=== PATIENT | female | born 1995 | race Asian ===

== ENCOUNTER → 2018-09-29 06:29 | Day surgery (SDC) | payer OTHER ==
[~2018-09-29 06:29] MED LIST: Acetaminophen TAB* 325 MG ONE; Acetaminophen TAB* 325 MG PO PRN; Buffered Lidocaine 1% SYRIN* 1 ML/SYRINGE INTRADERM ONE; Bupivacaine 0.25% SDV PF* 10 ML VIAL INJ ONE; Dexamethasone IV* 4 MG/ML 1 ML (4 MG) IV SLOW PU ONE; Dexamethasone IV* 4 MG/ML 1 ML (4 MG) ONE; DiMENhydriNATE IV* 50 MG/ML VIAL IV PUSH PRN; DiMENhydriNATE IV* 50 MG/ML VIAL ONE; Lactated Ringers 1000 ML Bag* 1,000 ML IV SCH; Lidocaine 1% INJ* 10 MG/ML 30 ML SDV ONE; Lidocaine 2% PF * 5 ML VIAL ONE; Midazolam* 1 MG/ML 2 ML VIAL (2 MG) ONE; Naloxone* 0.4 MG/ML 1 ML VIAL IV PRN; Ondansetron INJ* 2 MG/ML VIAL ONE; Propofol* 10 MG/ML 20 ML BTL ONE; Succinylcholine* 20 MG/ML 10 ML VIAL ONE; fentaNYL* 50 MCG/ML 2 ML VIAL (100 MCG VIAL) IV PRN; fentaNYL* 50 MCG/ML 2 ML VIAL (100 MCG VIAL) ONE; oxyCODONE/Acetamin 5/325 MG* TAB PO PRN
--- NOTE | 2018-09-29 11:54 | OP ---
Operative Report - Blank - Operative Report Date of Operation: 09/29/18 Note: Brief Operative Note Preop Dx: Papillary thyroid cancer Postop Dx: same Procedure: Total thyroidectomy Anesthesia: GET Surgeon: Alexis Neck Skewer: CHAZ Simmons Fluids: 1500 ml crystalloid EBL: < 10 ml Specimen: thyroid gland Drains: none Findings: as above Complications: none
--- NOTE | 2018-09-29 13:26 | OP ---
CC: Dr. Valentin Lu * DATE OF OPERATION: 09/29/18 - SDS DATE OF : [birth year] SERVICE: General Surgery. SURGEON: Estefanía Espinoza MD TALENT SCOUT: CHAZ Bella ANESTHESIOLOGIST: Dr. Bernard Mir. ANESTHESIA: General endotracheal anesthesia. PRE-OP DIAGNOSIS: Left thyroid papillary thyroid carcinoma. POST-OP DIAGNOSIS: Left thyroid papillary thyroid carcinoma. OPERATIVE PROCEDURE: Total thyroidectomy. ESTIMATED BLOOD LOSS: Minimal, less than 10 cc. IV FLUIDS: Approximately 1500 cc. SPECIMENS: Right and left thyroid lobes. INDICATIONS FOR SURGERY: Ms. Farah is a very pleasant and healthy 23-year-old female with a history of a left thyroid nodule that was biopsied as papillary thyroid carcinoma. She therefore gave informed consent for a total thyroidectomy. She understood the risks, benefits, and alternatives of the procedure and she wished to proceed. DESCRIPTION OF PROCEDURE: The patient was brought back to the operating room and placed on the operating table in supine position. Sequential compression devices were placed on the bilateral lower extremities for DVT prophylaxis. No antibiotics were administered. General endotracheal anesthesia was induced. The patient's neck was placed in an extended position. The electrodes to the nerve monitor were attached, and then prior to administering local anesthesia, a time-out was performed verifying the patient's name, MR number, and the procedure to be performed. Next, 0.25% marcaine mixed with 1% lidocaine was infiltrated into the anterior neck for local anesthesia. Then the neck was prepped and draped in normal sterile fashion. Prior to beginning the surgery, a second time-out was performed verifying the patient's name, MR number, and the procedure to be performed. An approximately 3.5 cm incision was made in the midline neck approximately 2 fingerbreadths above the sternal notch in a natural crease line. The skin was divided down to the subcutaneous tissue. The platysma was divided and then the superior and inferior subplatysmal flaps were developed. The median raphe between the strap muscles was identified and retracted laterally until the isthmus of the thyroid was identified. The isthmus was noted to extend superiorly as a pyramidal lobe; therefore, this pyramidal lobe was divided off the trachea and then the space below the thyroid and above the trachea was developed. Next, attention was turned towards the inferior aspect of the isthmus. The right and left sienna veins were both divided , and after this was done, the isthmus was able to be divided off the trachea flush with the right thyroid lobe. Given that the papillary thyroid carcinoma was located on the left side, attention was first turned towards the left thyroid lobe. The medial attachments of the left thyroid lobe to the trachea were divided using the LigaSure. The space of Reeve's located between the cricothyroid muscle and the superior pole vessels was developed and divided. After this, the left thyroid lobe was rotated medially and the strap muscles were retracted laterally off the thyroid lobe and the middle thyroid vein was divided. The space continued to be developed, and after this was done, the superior pole vessels were then divided using combination of 2-0 silk ties and LigaSure. Next, the thyroid lobe was again rotated medially up and out of the neck, and then the recurrent laryngeal nerve was identified. Its entire course was traced out until its insertion point into the cricothyroid muscle. Of note , it was identified visually; however, at the beginning of the case, the nerve monitor failed to stimulate, although the nerve was completely intact. By the end of the case, the nerve did begin to have a signal indicating that there may have been a slight traction injury on the nerve. The inferior and superior parathyroid glands were identified and preserved on their vascular pedicles. The left thyroid lobe was then taken off the trachea starting at Lin's ligament using the LigaSure. Once it was removed, it was carefully examined for any parathyroid glands and none were identified; therefore, a stitch was used to gavin the upper pole and was carried off as specimen. Next, attention was turned towards the right thyroid lobe. In a similar fashion, the medial attachments to the trachea were divided using the LigaSure. The space of Reeve' s was then developed. The strap muscles were off the right thyroid lobe laterally and then the middle thyroid vein was divided. The superior pole vessels were then divided using combination of LigaSure and 2-0 silk ties, and the right thyroid lobe was then rotated medially out of the neck. The inferior and superior parathyroid glands were identified and preserved on their pedicles. The recurrent laryngeal nerve on the right side was identified. Its entire course was traced out up until its insertion point at the cricothyroid muscle. It both was identified visually and with the nerve stimulator. After this was done, with great care, the right thyroid lobe was divided off the trachea using LigaSure starting at Lin's ligament and moving inferiorly over the trachea. Once it was taken off, it was carefully examined, no parathyroids were identified, then a 2-0 silk suture was used to gavin its upper pole. It was carried off the table as specimen. Next, hemostasis was obtained in both the right and left lateral necks, and once this was done, Tisseel was placed into the neck and then the strap muscles were reapproximated using interrupted 4 -0 Vicryl sutures. The platysma was reapproximated using interrupted 4-0 Vicryl sutures and the skin was reapproximated using a running 5-0 Prolene suture. At the end of the case, all counts were correct and I was present during the entirety of the case. [id number] #: [id number] MTDD
[2018-09-29 17:30] VITALS: BP 144/83
== END | disposition home or self-care (01) ==
LOC: OR 06:29
PROVIDERS: ATTEND Surgery
DX: C73 Malignant neoplasm of thyroid gland (principal); Z88.0 Allergy status to penicillin
CPT/HCPCS: 81025; 88307; A9270-GY; C1776; J0330; J1100; J1240; J2250; J2405; J2704; J3010; J3490